=== PATIENT | female | born 1970 | race Caucasian/White ===

== ENCOUNTER → 2017-10-05 13:57 | Outpatient (CLI) | payer OTHER, SELFPAY ==
--- NOTE | 2017-10-05 13:59 | DI.US.S_ITS ---
ULTRASOUND OF RIGHT BREAST: 10/05/2017 CLINICAL: Patient returns today to evaluate a density in the right breast. Comparison is made to exams dated: 10/05/2017 mammogram and 09/16/2017 mammogram - [facility]. Color flow and real-time ultrasound of the right breast were performed on the areas of interest. Bernal scale images of the real-time examination were reviewed. There is a 1.4 cm x 0.6 cm x 1.3 cm lobulated mass in the right breast at 2 o'clock anterior depth. This lobulated mass is hypoechoic with posterior acoustic enhancement. This correlates with mammography findings. IMPRESSION: PROBABLY BENIGN - FOLLOW-UP RECOMMENDED The 1.4 cm x 0.6 cm x 1.3 cm lobulated mass in the right breast likely represents a fibroadenoma and is probably benign. A follow-up mammogram and an ultrasound in 6 months is recommended to demonstrate stability. This exam was interpreted at Station ID: [id number]. Electronically Signed By: Leonora hanley/:10/05/2017 17:11:12 letter sent: Followup Recommended Ultrasound BI-RADS: 3 Probably benign
--- NOTE | 2017-10-05 13:59 | DI.MG.S_ITS ---
UNILATERAL RIGHT DIGITAL DIAGNOSTIC MAMMOGRAM 3D/2D WITH ADDITIONAL VIEWS: 10/05/2017 CLINICAL: Additional evaluation requested from prior study. Comparison is made [facility] The tissue of the right breast is heterogeneously dense. This may lower the sensitivity of mammography. There is a mass in the right breast central to the nipple anterior depth. This is seen in additional views. No other significant masses or calcifications are seen in the breast. IMPRESSION: INCOMPLETE: NEEDS ADDITIONAL IMAGING EVALUATION The mass in the right breast is indeterminate. An ultrasound is recommended. This exam was interpreted at Station ID: [id number]. NOTE: For mammograms, a report in lay terms will be sent to the patient. Approximately 15% of breast malignancies will not be visualized mammographically. In the management of a palpable breast mass, a negative mammogram must not discourage biopsy of a clinically suspicious lesion. Electronically Signed By: Leonora hanley/michelle:10/05/2017 14:19:56 letter sent: Additional Imaging Needed ACR BI-RADS Category 0: Incomplete 3340F
== END ==
PROVIDERS: Family Provider Physician Assistant; PCP Physician Assistant; Visit Provider Physician Assistant
DX: R92.8 Other abnormal and inconclusive findings on diagnostic imaging of breast (principal)
CPT/HCPCS: 76642; 77065; G0279

== ENCOUNTER → 2018-03-28 09:31 | Outpatient (CLI) | payer OTHER, SELFPAY ==
--- NOTE | 2018-03-28 09:33 | DI.US.S_ITS ---
LIMITED ULTRASOUND OF RIGHT BREAST: 03/28/2018 CLINICAL: 6 month follow-up probable fibroadenoma. Comparison is made to exams dated: 10/05/2017 ultrasound, 10/05/2017 mammogram, 09/16/2017 mammogram, and 03/28/2018 mammogram - [facility]. Real-time and Doppler ultrasound of the right breast 11-1 o'clock region were performed. Bernal scale images of the real-time examination were reviewed. There is a 1.5 cm x 0.6 cm x 1.3 cm (previously 1.4 cm x 0.6 cm x 1.3 cm on 10/05/2017) lobulated mass in the right breast at 12:30 position 4 cm from the nipple. This lobulated mass is hypoechoic with posterior acoustic enhancement. There is mild peripheral vascularity on Doppler ultrasound. This correlates with mammography findings. IMPRESSION: PROBABLY BENIGN Stable 1.5 cm mass in the right breast at 12:30 position 4 cm from the nipple likely represents a fibroadenoma and is probably benign. A follow-up diagnostic mammogram and ultrasound in 6 months is recommended to demonstrate stability. Patient will also be due for bilateral screening mammography at that time. Patient is advised to return sooner should she feel anything in her breasts grow or change. This exam was interpreted at Station ID: [id number]. Electronically Signed By: Ramos Wiggins M.D. ecl/:03/28/2018 11:00:31 letter sent: Followup Recommended Ultrasound BI-RADS: 3 Probably benign
--- NOTE | 2018-03-28 09:33 | DI.MG.S_ITS ---
UNILATERAL RIGHT DIGITAL DIAGNOSTIC MAMMOGRAM 3D/2D: 03/28/2018 CLINICAL: Patient returns for a 6 month follow up of the right breast. Comparison is made to exams dated: 10/05/2017 mammogram and 09/16/2017 mammogram - [facility]. The tissue of right breast is heterogeneously dense. This may lower the sensitivity of mammography. There is a stable mass in the right breast central to the nipple middle depth. No other significant masses or calcifications are seen in the breast. IMPRESSION: INCOMPLETE: NEEDS ADDITIONAL IMAGING EVALUATION The mass in the right breast. is stable. A targeted ultrasound of the right breast is recommended and will be performed immediately following this exam. This exam was interpreted at Station ID: [id number]. NOTE: For mammograms, a report in lay terms will be sent to the patient. Approximately 15% of breast malignancies will not be visualized mammographically. In the management of a palpable breast mass, a negative mammogram must not discourage biopsy of a clinically suspicious lesion. Electronically Signed By: Leonora Good M.D. lk/:03/28/2018 10:35:34 letter sent: Additional Imaging Needed ACR BI-RADS Category 0: Incomplete 3340F
== END ==
PROVIDERS: PCP Physician Assistant; Visit Provider Physician Assistant
DX: R92.8 Other abnormal and inconclusive findings on diagnostic imaging of breast (principal); N63.12 Unspecified lump in the right breast, upper inner quadrant
CPT/HCPCS: 76642; 77065; G0279

== ENCOUNTER → 2018-07-12 09:00 | Outpatient (CLI) | payer OTHER, SELFPAY ==
--- NOTE | 2018-07-12 09:02 | DI.US.S_ITS ---
PROCEDURE: US ABDOMEN COMPLETE INDICATIONS: RIGHT LOWER QUADRANT PAIN TECHNIQUE: Real-time scanning was performed of the abdominal and retroperitoneal organs, with image documentation. COMPARISON: [facility], US, US PELVIC COMPLETE, 07/12/2018, 9:19. FINDINGS: Liver: Liver is normal in size. Within the anterior aspect of the right lobe of the liver, there is a solid heterogeneous, yet largely hyperechoic mass that measures 3.3 x 3.4 x 4.3 cm. Internal vascularity can be seen. There can also be seen 3 simple cysts left lobe liver, with the largest measuring up to 2.8 cm. Gallbladder: No findings of gallstones or sludge are seen. The gallbladder wall is not thickened, measuring 3 mm or less. No specific pericholecystic fluid is seen. The sonographic Navarro sign is negative. Biliary ducts: Intrahepatic bile ducts are non-dilated. No extrahepatic biliary ductal dilatation is seen. The common hepatic duct measures 4-5 mm. Normal is 6-7 mm or less in diameter, or 10 mm or less post-cholecystectomy. Pancreas: Visualized portions of the pancreas are sonographically normal. Spleen: Spleen is normal in size and homogeneous in echotexture. Kidneys: Kidneys are normal in size and echotexture. Right kidney measures 10.1 cm long; left kidney measures 10.1 cm long. No hydronephrosis or nephrolithiasis. No solid masses. The renal cortex measures within normal limits for thickness. Aorta: Visualized aorta is normal in caliber at less than 3 cm. Iliacs: Proximal common iliac arteries are normal in caliber at less than 2.5 cm. IVC: Intrahepatic inferior vena cava is patent. Miscellaneous: No free abdominal fluid. IMPRESSION: There is a heterogeneous, yet largely hyperechoic mass that measures up to 4.3 cm involving the anterior lobe of the liver. In a patient of this age, and is felt most likely to be related to a benign lesion, potentially a hemangioma. As clinically appropriate, please consider a dedicated liver protocol MRI (with and without contrast) for further evaluation (assuming that there is no contraindication). No imaging explanation is found for this patient's presenting history of right lower quadrant pain. Simple appearing liver cysts are also incidentally seen. Dictated by: Oliver Ríos M.D. on 07/12/2018 at 11:54 Approved by: Oliver Ríos M.D. on 07/12/2018 at 12:00
--- NOTE | 2018-07-12 09:02 | DI.US.S_ITS ---
PROCEDURE: US PELVIC COMPLETE INDICATIONS: RIGHT LOWER QUADRANT PAIN TECHNIQUE: Real-time scanning was performed of the pelvic organs, with image documentation. Additional endovaginal scanning was necessary due to incomplete visualization of the adnexal and endometrial structures by transabdominal scanning. COMPARISON: [facility], , US ABDOMEN COMPLETE, 07/12/2018, 9:36. FINDINGS: Transabdominal scanning: No pathologic free abdominal or pelvic fluid. On the accompanying abdominal ultrasound, the kidneys demonstrate a normal appearance. No appendix (either normal or abnormal) is identified on this study. Endovaginal scanning: Uterus: Uterus is normal in size at 10.1 x 5.5 x 7 cm. The endometrium measures 16 mm in combined thickness. Ovaries: The right ovary measures 3.6 x 3 x 3.6 cm. The left ovary measures 1.9 x 1.9 x 2.1 cm. The ovaries have a normal sonographic appearance, with simple appearing cysts, which are considered to be within physiologic limits. No adnexal masses are seen. IMPRESSION: No appendix can be seen, either normal or abnormal. No imaging explanation is found for this patient's presenting history of right lower quadrant pain. Dictated by: Oliver Ríos M.D. on 07/12/2018 at 11:48 Approved by: Oliver Ríos M.D. on 07/12/2018 at 11:50
== END ==
PROVIDERS: PCP Physician Assistant; Visit Provider Physician Assistant
DX: R10.31 Right lower quadrant pain (principal); R16.0 Hepatomegaly, not elsewhere classified; K76.89 Other specified diseases of liver; N83.292 Other ovarian cyst, left side; N83.291 Other ovarian cyst, right side
CPT/HCPCS: 76700; 76830; 76856

== ENCOUNTER → 2018-08-01 13:04 | Outpatient (CLI) | payer OTHER, SELFPAY ==
--- NOTE | 2018-08-01 13:06 | DI.MRI.S_ITS ---
PROCEDURE: MR ABDOMEN WO/W CON INDICATIONS: check liver-possible hemangioma R lobe seen on US TECHNIQUE: Coronal HASTE, axial 2D FLASH in- and [id number]; axial breath-hold T2 FSE. Dynamic axial VIBE during the administration of contrast; post-contrast coronal VIBE or 2D FLASH with fat saturation from the hepatic dome to the iliac crests. Optional diffusion weighted imaging and ADC may be performed. COMPARISON: None. FINDINGS: Image quality: Excellent. Lung bases: No basal pleural effusions. Heart size is normal. Solid organs: Liver is normal in size and enhancement. There are multiple widely scattered, thin-walled T2 hyperintensities within both lobes of the liver. The largest lesion is in the right hepatic lobe laterally, measures approximately 4.5 x 3.4 cm, and post contrast, demonstrates classic peripheral arterial discontinuous enhancement which gradually fills in on delayed phases. Given its size and timing of imaging, complete wash-in is not seen. The largest lesion in the left hepatic lobe is cranial within segment II, septated, and measures 2.3 cm. There is no arterial or delayed phase enhancement and finding is consistent with a septated cyst. Other simple cysts are seen scattered throughout the liver. There is no overall signal drop on out of phase imaging to suggest fat infiltration. The gallbladder is decompressed. Biliary system is nondilated. Pancreas is normal in morphology. Spleen is normal in size and enhancement. No adrenal nodules. Both kidneys demonstrate normal size and enhancement, without hydronephrosis. Tiny cortical cysts are seen in the left kidney. Nodes and vessels: No retroperitoneal or mesenteric adenopathy by size criteria. Aorta and inferior vena cava are normal in size. Bowel and peritoneum: Unenhanced bowel loops are normal in caliber. No free fluid. Bones and soft tissues: A most mild periumbilical rectus diastases through which nonobstructed small bowel loops protrude. Bone marrow is normal in overall signal. IMPRESSION: 1. 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 This is consistent with the ultrasound appearance and no further followup is needed. 2. Other scattered simple and finely septated cysts within the liver and left kidney are present. 3. Nonobstructing, small bowel containing rectus diastases. Dictated by: Vonnie Williamson M.D. on 08/01/2018 at 20:15 Approved by: Vonnie Williamson M.D. on 08/01/2018 at 20:28
== END ==
PROVIDERS: PCP Physician Assistant; Visit Provider Physician Assistant
DX: R10.31 Right lower quadrant pain (principal); R93.2 Abnormal findings on diagnostic imaging of liver and biliary tract; M62.08 Separation of muscle (nontraumatic), other site; N28.1 Cyst of kidney, acquired; K76.89 Other specified diseases of liver
CPT/HCPCS: 74183; A9579

== ENCOUNTER → 2018-10-03 09:39 | Outpatient (CLI) | payer OTHER, SELFPAY ==
--- NOTE | 2018-10-03 | DI.MG.S_ITS ---
BILATERAL DIGITAL DIAGNOSTIC MAMMOGRAM 3D/2D: 10/03/2018 CLINICAL: Patient returns for 6 month follow up of right breast, due for bilateral exam. Comparison is made to exams dated: 03/28/2018 mammogram, 10/05/2017 mammogram, and 09/16/2017 mammogram - [facility]. The tissue of both breasts is heterogeneously dense. This may lower the sensitivity of mammography. There is an oval equal density mass with an obscured and circumscribed margin in the right breast at 12 o'clock middle depth. This is not significantly changed. No other significant masses, calcifications, or other findings are seen in either breast. IMPRESSION: INCOMPLETE: NEEDS ADDITIONAL IMAGING EVALUATION The oval equal density mass in the right breast is indeterminate. An ultrasound is recommended. This exam was interpreted at Station ID: [id number]. NOTE: For mammograms, a report in lay terms will be sent to the patient. Approximately 15% of breast malignancies will not be visualized mammographically. In the management of a palpable breast mass, a negative mammogram must not discourage biopsy of a clinically suspicious lesion. Electronically Signed By: Aashish hitchcock/michelle:10/03/2018 10:35:14 ACR BI-RADS Category 0: Incomplete 3340F
--- NOTE | 2018-10-03 09:41 | DI.US.S_ITS ---
LIMITED ULTRASOUND OF RIGHT BREAST: 10/03/2018 CLINICAL: F/u rt breast. Comparison is made to exams dated: 10/03/2018 mammogram, 03/28/2018 ultrasound, 03/28/2018 mammogram, 10/05/2017 ultrasound, and 10/05/2017 mammogram - [facility]. Color flow and real-time ultrasound of the right breast 12 o'clock region were performed on the areas of interest. There is 1.6 cm x 0.7 cm x 1.4 cm oval mass with a circumscribed margin in the right breast at 12 o'clock middle depth. This oval mass is hypoechoic with a well-defined boundary. This correlates with mammography findings and appears similar to minimally increased in size compared to the prior studies given differences in technique. Color flow imaging demonstrates that there is no vascularity present. IMPRESSION: PROBABLY BENIGN The 1.6 cm x 0.7 cm x 1.4 cm oval mass in the right breast is probably benign. A follow-up ultrasound in 6 months is recommended. A follow-up ultrasound in 6 months is recommended to demonstrate stability. This exam was interpreted at Station ID: [id number]. Electronically Signed By: Aashish hitchcock/:10/03/2018 12:00:43 letter sent: Followup Recommended Ultrasound BI-RADS: 3 Probably benign
== END ==
PROVIDERS: PCP Physician Assistant; Visit Provider Physician Assistant
DX: R92.8 Other abnormal and inconclusive findings on diagnostic imaging of breast (principal); N63.10 Unspecified lump in the right breast, unspecified quadrant
CPT/HCPCS: 76642; 77066; G0279

== ENCOUNTER → 2019-03-29 10:17 | Outpatient (CLI) | payer OTHER, SELFPAY ==
--- NOTE | 2019-03-29 10:19 | DI.US.S_ITS ---
ULTRASOUND OF RIGHT BREAST: 03/29/2019 CLINICAL: 6 month follow-up right breast mass. Comparison is made to exams dated: 10/03/2018 ultrasound, 10/03/2018 mammogram, 03/28/2018 ultrasound, 03/28/2018 mammogram, 10/05/2017 ultrasound, and 10/05/2017 mammogram - [facility]. Color flow and real-time ultrasound of the right breast were performed. Bernal scale images of the real-time examination were reviewed. There is a 1.5 cm x 0.6 cm x 1.2 cm oval mass with a circumscribed margin in the right breast at 12 o'clock middle depth 4 cm from the nipple. This oval mass is hypoechoic with a well-defined boundary. This abnormality is not significantly changed and correlates with mammography findings. Color flow imaging demonstrates that there is no vascularity present. IMPRESSION: PROBABLY BENIGN The 1.5 cm x 0.6 cm x 1.2 cm oval mass in the right breast has remained stable since September 2017 and is probably benign. A follow-up bilateral mammogram and a right breast ultrasound in 6 months is recommended to demonstrate two years of stability. This exam was interpreted at Station ID: [id number]. Electronically Signed By: Gary Carson M.D. aty/:03/29/2019 11:15:14 letter sent: Followup Recommended Ultrasound BI-RADS: 3 Probably benign
== END ==
PROVIDERS: Family Provider Physician Assistant; PCP Physician Assistant; Visit Provider Registered Nurse
DX: R92.8 Other abnormal and inconclusive findings on diagnostic imaging of breast (principal); N63.15 Unspecified lump in the right breast, overlapping quadrants
CPT/HCPCS: 76642

== ENCOUNTER → 2019-12-26 12:36 | Outpatient (CLI) | payer OTHER, SELFPAY ==
--- NOTE | 2019-12-26 12:38 | DI.MG.S_ITS ---
BILATERAL DIGITAL DIAGNOSTIC MAMMOGRAM 3D/2D: 12/26/2019 CLINICAL: Short term follow up, due bilateral. Comparison is made to exams dated: 10/03/2018 mammogram, 03/28/2018 mammogram, 10/05/2017 mammogram, and 09/16/2017 mammogram - [facility]. The tissue of both breasts is heterogeneously dense. This may lower the sensitivity of mammography. Unchanged oval isodense mass with an partially obscured margin in the right breast at 12 o'clock middle depth. No other significant masses, calcifications, or other findings are seen in either breast. IMPRESSION: INCOMPLETE: NEEDS ADDITIONAL IMAGING EVALUATION The oval equal density mass in the right breast is unchanged by mammogram. An ultrasound is recommended to more fully evaluate, scheduled to immediately follow this exam. This exam was interpreted at Station ID: [id number]. NOTE: For mammograms, a report in lay terms will be sent to the patient. Approximately 15% of breast malignancies will not be visualized mammographically. In the management of a palpable breast mass, a negative mammogram must not discourage biopsy of a clinically suspicious lesion. Electronically Signed By: Dixon Renteria M.D. jr/:12/26/2019 13:03:36 ACR BI-RADS Category 0: Incomplete 3340F
--- NOTE | 2019-12-26 12:38 | DI.US.S_ITS ---
LIMITED ULTRASOUND OF RIGHT BREAST: 12/26/2019 CLINICAL: Patient returns for a 6 month follow up of the right breast. Comparison is made to exams dated: 12/26/2019 mammogram, 03/29/2019 ultrasound, 10/03/2018 ultrasound, 10/03/2018 mammogram, 03/28/2018 ultrasound, and 03/28/2018 mammogram - [facility]. Color flow, real-time, and Doppler ultrasound of the right breast were performed. Bernal scale images of the real-time examination were reviewed. The right breast mass of interest is unchanged when compared with 2018 examinations, statistically benign. IMPRESSION: BENIGN There is no sonographic evidence of malignancy. Return to annual mammogram screening schedule is recommended. This exam was interpreted at Station ID: [id number]. Electronically Signed By: Dixon Renteria M.D. jr/:12/26/2019 13:41:52 letter sent: Normal Exam Ultrasound BI-RADS: 2 Benign
== END ==
PROVIDERS: Family Provider Physician Assistant; PCP Nurse Practitioner; Referring Provider Nurse Practitioner; Visit Provider Nurse Practitioner
DX: R92.8 Other abnormal and inconclusive findings on diagnostic imaging of breast (principal); N63.15 Unspecified lump in the right breast, overlapping quadrants
CPT/HCPCS: 76642; 77066; G0279

== ENCOUNTER → 2020-03-21 09:48 | Outpatient (CLI) | payer OTHER, SELFPAY ==
[2020-03-21 10:34] LABS: Hematocrit 40.5 % (36-46); Hemoglobin 13.8 g/dL (12.0-16.0); Mean Corpuscular Hemoglobin 31.6 PG (26-34); Platelet Count 220 X10^3/uL (150-400); Red Blood Cell Count 4.35 X10^6/uL (4.0-5.2); Red Cell Distribution Width 12.4 % (11.6-14.8); White Blood Cell Count 4.3 X10^3/uL (4.5-11.0)
[2020-03-21 10:46] LABS: Alanine Aminotransferase 15 IU/L (<35); Albumin 4.3 g/dL (3.5-5.0); Albumin Globulin Ratio 1.3 (1.0-2.8); Alkaline Phosphatase 65 U/L (38-126); Aspartate Aminotransferase 27 IU/L (14-36); BUN Creatinine Ratio 22.1 (6-22); Bilirubin Total 0.6 mg/dL (0.2-1.3); Blood Urea Nitrogen 17 mg/dL (7-17); Calcium 9.1 mg/dL (8.4-10.2); Carbon Dioxide 31 mmol/L (22-32); Chloride 105 mmol/L (98-107); Cholesterol 273 mg/dL (140-199); Estimated Glomerular Filt Rate > 60.0 mL/min (>60); Globulin 3.3 g/dL (1.7-4.1); Glucose 88 mg/dL (70-100); HDL Cholesterol 43 mg/dL (40-60); HEMOLYSIS < 15 (0-50); LDL Cholesterol Calculated 213 mg/dL (<100); Potassium 4.6 mmol/L (3.4-5.1); Sodium 138 mmol/L (137-145); Total Protein 7.6 g/dL (6.3-8.2); Triglycerides 86 mg/dL (35-150)
[2020-03-21 12:30] LABS: TSH w/ Reflex to FT4 2.06 uIU/mL (0.47-4.68)
[2020-03-25 15:41] LABS: Lamotrigine Lamictal 5.2 ug/mL (2.0-20.0)
== END ==
PROVIDERS: Family Provider Physician Assistant; PCP Nurse Practitioner Family; Referring Provider Nurse Practitioner Family; Visit Provider Nurse Practitioner Family
DX: Z00.00 Encounter for general adult medical examination without abnormal findings (principal); L85.3 Xerosis cutis; E78.5 Hyperlipidemia, unspecified; Z79.899 Other long term (current) drug therapy
CPT/HCPCS: 36415; 80053; 80061; 80175; 84443; 85027

== ENCOUNTER → 2020-06-26 15:06 | Outpatient (CLI) | payer OTHER, SELFPAY ==
--- NOTE | 2020-06-26 | DI.RAD.S_ITS ---
PROCEDURE: XR FOOT LT MIN 3V INDICATIONS: LEFT foot injury TECHNIQUE: 3 views of the foot were acquired. COMPARISON: None. FINDINGS: Bones: No fractures or dislocations. No suspicious bony lesions. Soft tissues: No tibiotalar joint effusion. Achilles tendon appears normal. IMPRESSION: No trauma found. Dictated by: Blaine Vidal M.D. on 06/26/2020 at 16:08 Approved by: Blaine Vidal M.D. on 06/26/2020 at 16:08
== END ==
PROVIDERS: Family Provider Physician Assistant; PCP Nurse Practitioner Family; Referring Provider Nurse Practitioner Family; Visit Provider Nurse Practitioner Family
DX: S99.922A Unspecified injury of left foot, initial encounter (principal); X58.XXXA Exposure to other specified factors, initial encounter
CPT/HCPCS: 73630

== ENCOUNTER → 2020-08-15 | Outpatient (CLI) | payer OTHER, SELFPAY ==
[2020-08-15] MEDS: COVID-19 VACC #1, MRNA(MOD) 100 MCG/0.5 ML VIAL IM (17:05)
== END ==
PROVIDERS: Family Provider Physician Assistant; PCP Nurse Practitioner Family; Visit Provider Internal Medicine
DX: Z23 Encounter for immunization (principal)
CPT/HCPCS: 0011A; 91301

== ENCOUNTER → 2020-09-12 14:12 | Outpatient (CLI) | payer OTHER, SELFPAY ==
[2020-09-12] MEDS: COVID-19 VACC #2, MRNA(MOD) 100 MCG/0.5 ML VIAL IM (14:13)
== END ==
PROVIDERS: Family Provider Physician Assistant; PCP Nurse Practitioner Family; Visit Provider Internal Medicine
DX: Z23 Encounter for immunization (principal)
CPT/HCPCS: 0012A; 91301

== ENCOUNTER → 2021-01-22 15:13 | Outpatient (CLI) | payer OTHER, SELFPAY ==
--- NOTE | 2021-01-22 15:15 | DI.MG.S_ITS ---
BILATERAL DIGITAL SCREENING MAMMOGRAM 3D/2D WITH CAD: 01/22/2021 CLINICAL: Routine screening. Comparison is made to exams dated: 12/26/2019 ultrasound, 12/26/2019 mammogram, 10/03/2018 mammogram, and 03/28/2018 mammogram - [facility]. The tissue of both breasts is heterogeneously dense. This may lower the sensitivity of mammography. Current study was also evaluated with a Computer Aided Detection (CAD) system. There is a stable benign cyst in the right breast. No significant masses, calcifications, or other findings are seen in either breast. There has been no significant interval change. IMPRESSION: BENIGN There is no mammographic evidence of malignancy. A 1 year screening mammogram is recommended. This exam was interpreted at Station ID: [id number]. NOTE: For mammograms, a report in lay terms will be sent to the patient. Approximately 15% of breast malignancies will not be visualized mammographically. In the management of a palpable breast mass, a negative mammogram must not discourage biopsy of a clinically suspicious lesion. Electronically Signed By: Bautista Chun acr/susierad:01/22/2021 16:35:30 letter sent: Normal Exam ACR BI-RADS Category 2: Benign Finding(s) 3342F
== END ==
PROVIDERS: Family Provider Physician Assistant; PCP Nurse Practitioner Family; Referring Provider Nurse Practitioner Family; Visit Provider Nurse Practitioner Family
DX: Z12.31 Encounter for screening mammogram for malignant neoplasm of breast (principal)
CPT/HCPCS: 77063; 77067

== ENCOUNTER → 2021-03-03 09:37 | Outpatient (CLI) | payer OTHER, SELFPAY ==
[2021-03-03 10:59] LABS: Add Manual Diff / Slide Review NO; Basophils Absolute Auto 0 /uL (0-100); Basophils Percent Auto 1.1 % (0-2); Eosinophils Absolute Auto 200 /uL (0-450); Eosinophils Percent Auto 4.9 % (2-4); Hematocrit 41.7 % (36-46); Hemoglobin 13.9 g/dL (12.0-16.0); Lymphocytes Absolute Auto 1500 /uL (1100-4500); Lymphocytes Percent Auto 31.5 % (25-40); Mean Corpuscular HGB Conc 33.3 % (30-36); Monocytes Absolute Auto 400 /uL (0-900); Monocytes Percent Auto 8.7 % (3-14); Neutrophils Absolute Auto 2500 /uL (1500-7000); Neutrophils Percent Auto 53.8 % (50-75); Platelet Count 213 X10^3/uL (150-400); Red Blood Cell Count 4.48 X10^6/uL (4.0-5.2); Red Cell Distribution Width 12.6 % (11.6-14.8); White Blood Cell Count 4.7 X10^3/uL (4.5-11.0)
[2021-03-03 11:20] LABS: Alanine Aminotransferase 17 IU/L (<35); Albumin 4.1 g/dL (3.5-5.0); Albumin Globulin Ratio 1.4 (1.0-2.8); Alkaline Phosphatase 55 U/L (38-126); Aspartate Aminotransferase 24 IU/L (14-36); BUN Creatinine Ratio 27.7 (6-22); Bilirubin Total 0.4 mg/dL (0.2-1.3); Blood Urea Nitrogen 18 mg/dL (7-17); Calcium 8.9 mg/dL (8.4-10.2); Carbon Dioxide 29 mmol/L (22-32); Chloride 106 mmol/L (98-107); Cholesterol 255 mg/dL (140-199); Estimated Glomerular Filt Rate > 60.0 mL/min (>60); Glucose 89 mg/dL (70-100); HDL Cholesterol 50 mg/dL (40-60); HEMOLYSIS < 15 (0-50); LDL Cholesterol Calculated 190 mg/dL (<100); Potassium 4.6 mmol/L (3.4-5.1); Sodium 139 mmol/L (137-145); Total Protein 7.1 g/dL (6.3-8.2); Triglycerides 75 mg/dL (35-150)
[2021-03-03 15:57] LABS: TSH w/ Reflex to FT4 2.41 uIU/mL (0.47-4.68)
== END ==
PROVIDERS: Family Provider Physician Assistant; PCP Internal Medicine; Referring Provider Internal Medicine; Visit Provider Internal Medicine
DX: Z00.00 Encounter for general adult medical examination without abnormal findings (principal); R53.83 Other fatigue
CPT/HCPCS: 36415; 80053; 80061; 83036; 84443; 85025

== ENCOUNTER → 2021-07-07 12:05 | Outpatient (CLI) | payer OTHER, SELFPAY ==
[2021-07-07 14:02] LABS: Appearance Urine UA CLEAR; Bilirubin Urine UA NEGATIVE (NEGATIVE); Color Urine UA YELLOW; Glucose Urine UA NEGATIVE (Negative); Ketones Urine UA NEGATIVE (NEGATIVE); Leukocyte Esterase Urine UA NEGATIVE (NEGATIVE); Nitrite Urine UA NEGATIVE (Negative); Occult Blood Urine UA 1+ (Negative); Protein Urine UA NEGATIVE (Negative); Urobilinogen Urine UA 0.2 E.U./dL (0.2)
[2021-07-07 14:52] LABS: RBC Urine 1-5/HPF (0-5/HPF); WBC Urine 0-1/HPF (0-5/HPF)
[2021-07-07 14:53] LABS: Bacteria Urine Few (2-10); Culture Indicated Urine Cult Not Indicated; Squamous Epithelial Cell Urine 0-1 /HPF (0-5/HPF)
== END ==
PROVIDERS: Family Provider Internal Medicine; PCP Internal Medicine; Referring Provider Internal Medicine; Visit Provider Internal Medicine
DX: N39.46 Mixed incontinence (principal)
CPT/HCPCS: 81001

== ENCOUNTER → 2021-07-21 11:42 | Outpatient (CLI) | payer OTHER, SELFPAY ==
--- NOTE | 2021-07-21 11:45 | DI.CT.S_ITS ---
PROCEDURE: CT SINUS SCREEN WO CON INDICATIONS: Chronic pansinusitis TECHNIQUE: Noncontrast 3.0 mm axial images acquired from the frontal sinuses to the mid-sella, with coronal and sagittal reformats. For radiation dose reduction, the following was used: automated exposure control, adjustment of mA and/or kV according to patient size. COMPARISON: None. FINDINGS: Image quality: Excellent. Maxillary Sinuses: Near complete opacification left maxillary sinus with obstruction of the ostiomeatal unit noted. The. There is a right maxillary sinus mucosal thickening measuring up to 6 mm. Bilateral uncinectomy and ethmoidectomy noted with preservation of the middle turbinates Ethmoid Air Cells: Middle and posterior ethmoidectomy with mucosal thickening noted in the anterior ethmoid air cells. Sphenoid Sinuses: No bony remodeling or destruction. Sinuses are clear. Frontal Sinuses: No bony remodeling or destruction. Sinuses are clear. Ostiomeatal Complexes: Ostiomeatal complexes are patent. No Kasia cells. Miscellaneous: Visualized intra-orbital contents are normal. No jhon bullosa or paradoxical turbinate curvature. No nasal septal deviation. Bilateral canal wall up mastoidectomy is noted. Ossicular chains appear preserved. IMPRESSION: 1. Bilateral maxillary sinus mucosal thickening, left greater than right. 2. Bilateral uncinectomy and ethmoidectomy. 3. Anterior ethmoid mucosal thickening Approved by: Louie Weaver M.D. on 07/21/2021 at 13:05
== END ==
PROVIDERS: Family Provider Internal Medicine; PCP Internal Medicine; Referring Provider Otolaryngology; Visit Provider Otolaryngology
DX: J32.4 Chronic pansinusitis (principal)
CPT/HCPCS: 70486

== ENCOUNTER → 2021-08-25 12:10 | Outpatient (CLI) | payer OTHER, SELFPAY ==
[2021-08-25 14:28] LABS: Add Manual Diff / Slide Review NO; Basophils Absolute Auto 0 /uL (0-100); Basophils Percent Auto 0.8 % (0-2); Eosinophils Absolute Auto 200 /uL (0-450); Eosinophils Percent Auto 2.4 % (2-4); Hematocrit 38.9 % (36-46); Hemoglobin 13.2 g/dL (12.0-16.0); Lymphocytes Absolute Auto 1200 /uL (1100-4500); Lymphocytes Percent Auto 18.9 % (25-40); Mean Corpuscular HGB Conc 33.8 % (30-36); Mean Corpuscular Hemoglobin 30.8 PG (26-34); Mean Corpuscular Volume 91.1 fL (80-100); Monocytes Absolute Auto 800 /uL (0-900); Neutrophils Absolute Auto 4200 /uL (1500-7000); Neutrophils Percent Auto 65.9 % (50-75); Platelet Count 220 X10^3/uL (150-400); Red Blood Cell Count 4.27 X10^6/uL (4.0-5.2); Red Cell Distribution Width 13.5 % (11.6-14.8); White Blood Cell Count 6.4 X10^3/uL (4.5-11.0)
[2021-08-25 14:42] LABS: Alanine Aminotransferase 30 IU/L (<35); Albumin 3.6 g/dL (3.5-5.0); Albumin Globulin Ratio 1.2 (1.0-2.8); Alkaline Phosphatase 71 U/L (38-126); Aspartate Aminotransferase 25 IU/L (14-36); BUN Creatinine Ratio 23.2 (6-22); Bilirubin Total 0.4 mg/dL (0.2-1.3); Blood Urea Nitrogen 16 mg/dL (7-17); Calcium 8.3 mg/dL (8.4-10.2); Carbon Dioxide 26 mmol/L (22-32); Chloride 105 mmol/L (98-107); Estimated Glomerular Filt Rate > 60.0 mL/min (>60); Glucose 96 mg/dL (70-100); HEMOLYSIS < 15 (0-50); Potassium 3.8 mmol/L (3.4-5.1); Sodium 138 mmol/L (137-145); Total Protein 6.6 g/dL (6.3-8.2)
== END ==
PROVIDERS: Family Provider Internal Medicine; PCP Internal Medicine; Referring Provider Physician Assistant; Visit Provider Physician Assistant
DX: R19.7 Diarrhea, unspecified (principal)
CPT/HCPCS: 36415; 80053; 85025

== ENCOUNTER → 2021-08-27 07:12 | Outpatient (CLI) | payer OTHER, SELFPAY ==
[2021-08-27 10:17] LABS: Campylobacter Not Detected (Not Detect); Clostridium difficile toxin AB Detected (Not Detect)
[2021-08-27 10:18] LABS: Adenovirus F 40/41 Not Detected (Not Detect); Astrovirus Not Detected (Not Detect); Cryptosporidium Not Detected (Not Detect); Cyclospora cayetanensis Not Detected (Not Detect); Entamoeba histolytica Not Detected (Not Detect); Enteroaggregative E.coli Not Detected (Not Detect); Enteropathogenic E.coli Not Detected (Not Detect); Enterotoxigenic E.coli It/st Not Detected (Not Detect); Giardia lamblia Not Detected (Not Detect); Norovirus GI/GII Not Detected (Not Detect); Plesiomonsa shigelloides Not Detected (Not Detect); Rotavirus A Not Detected (Not Detect); Salmonella Not Detected (Not Detect); Sapovirus Not Detected (Not Detect); Shiga-like toxin-prod E.coli Not Detected (Not Detect); Shigella/Enteroinvasive E.coli Not Detected (Not Detect); Vibrio Not Detected (Not Detect); Vibrio cholerae Not Detected (Not Detect); Yersinia enterocolitica Not Detected (Not Detect)
[2021-08-28 15:48] LABS: C difficie Toxins A and B, EIA Negative (Negative)
== END ==
PROVIDERS: Family Provider Internal Medicine; PCP Internal Medicine; Referring Provider Physician Assistant; Visit Provider Physician Assistant
DX: R19.7 Diarrhea, unspecified (principal)
CPT/HCPCS: 87177; 87324; 87329; 87507

== ENCOUNTER → 2021-09-08 12:42 | Outpatient (CLI) | payer OTHER, SELFPAY ==
--- NOTE | 2021-09-08 12:44 | DI.CT.S_ITS ---
PROCEDURE: CT SINUS SCREEN WO CON INDICATIONS: Chronic pansinusitis TECHNIQUE: Noncontrast 3.0 mm axial images acquired from the frontal sinuses to the mid-sella, with coronal and sagittal reformats. For radiation dose reduction, the following was used: automated exposure control, adjustment of mA and/or kV according to patient size. COMPARISON: [facility], CT, CT SINUS SCREEN WO CON, 07/21/2021, 11:46. FINDINGS: Image quality: Excellent. Maxillary Sinuses: The medial mcneil of the maxillary sinuses have been. Ixhi-gc-akvulhwi inferior right and mild inferior left maxillary sinus mucosal thickening can be seen. Ethmoid Air Cells: Portions of the ethmoid air cell septations have been removed. Moderate mucosal thickening can be seen on the right. Sphenoid Sinuses: No bony remodeling or destruction. Sinuses are clear. Frontal Sinuses: No bony remodeling or destruction. Hqta-qn-ehkomlvt mucosal thickening can be seen on the right inferior medially. Ostiomeatal Complexes: Removed. Miscellaneous: Visualized intra-orbital contents are normal. No jhon bullosa or paradoxical turbinate curvature. No nasal septal deviation. IMPRESSION: Paranasal sinus disease is seen, which is clearly improved compared to the prior CT. Interval postoperative changes, with new left-sided antrectomy. Dictated by: Oliver Ríos M.D. on 09/08/2021 at 12:03 Approved by: Oliver Ríos M.D. on 09/08/2021 at 12:05
== END ==
PROVIDERS: Family Provider Internal Medicine; PCP Internal Medicine; Referring Provider Otolaryngology; Visit Provider Otolaryngology
DX: J32.4 Chronic pansinusitis (principal)
CPT/HCPCS: 70486

== ENCOUNTER → 2022-01-27 12:46 | Outpatient (CLI) | payer OTHER, SELFPAY ==
--- NOTE | 2022-01-27 12:47 | DI.MG.S_ITS ---
BILATERAL DIGITAL SCREENING MAMMOGRAM 3D/2D WITH CAD: 01/27/2022 CLINICAL: Routine screening. Comparison is made to exams dated: 01/22/2021 mammogram, 12/26/2019 mammogram, 03/29/2019 ultrasound, 10/03/2018 mammogram, and 03/28/2018 mammogram - [facility]. Both breasts are heterogeneously dense, which may obscure small masses (category c / 51-75% glandular tissue). Current study was also evaluated with a Computer Aided Detection (CAD) system. There is a stable benign cyst in the right breast. No significant masses, calcifications, or other findings are seen in either breast. There has been no significant interval change. IMPRESSION: BENIGN There is no mammographic evidence of malignancy. A 1 year screening mammogram is recommended. Based on the Tyrer Cuzick model (a risk assessment model) the patient's lifetime risk is 14.2% and her 10 year risk is 3.2%. According to the ACR, ACS, and NCCN guidelines, an annual breast MRI exam along with mammogram is recommended if the patient's lifetime risk is 20% or greater. This exam was interpreted at Station ID: [id number]. NOTE: For mammograms, a report in lay terms will be sent to the patient. Approximately 15% of breast malignancies will not be visualized mammographically. In the management of a palpable breast mass, a negative mammogram must not discourage biopsy of a clinically suspicious lesion. Electronically Signed By: Giuliano chappell/michelle:01/27/2022 16:37:23 letter sent: Normal Exam ACR BI-RADS Category 2: Benign Finding(s) 3342F
== END ==
PROVIDERS: Family Provider Internal Medicine; PCP Student in an Organized Health Care Education/Training Program; Referring Provider Student in an Organized Health Care Education/Training Program; Visit Provider Student in an Organized Health Care Education/Training Program
DX: Z12.31 Encounter for screening mammogram for malignant neoplasm of breast (principal)
CPT/HCPCS: 77063; 77067

== ENCOUNTER → 2022-02-11 11:38 | Outpatient (CLI) | payer OTHER, SELFPAY ==
[2022-02-11 13:33] LABS: Add Manual Diff / Slide Review NO; Basophils Absolute Auto 0 /uL (0-100); Basophils Percent Auto 0.6 % (0-2); Eosinophils Absolute Auto 300 /uL (0-450); Eosinophils Percent Auto 3.5 % (2-4); Hematocrit 39.5 % (36-46); Hemoglobin 13.7 g/dL (12.0-16.0); Lymphocytes Absolute Auto 1800 /uL (1100-4500); Lymphocytes Percent Auto 23.7 % (25-40); Mean Corpuscular HGB Conc 34.7 % (30-36); Mean Corpuscular Hemoglobin 31.4 PG (26-34); Mean Corpuscular Volume 90.4 fL (80-100); Monocytes Absolute Auto 600 /uL (0-900); Monocytes Percent Auto 7.9 % (3-14); Neutrophils Absolute Auto 4800 /uL (1500-7000); Neutrophils Percent Auto 64.3 % (50-75); Platelet Count 201 X10^3/uL (150-400); Red Blood Cell Count 4.36 X10^6/uL (4.0-5.2); Red Cell Distribution Width 13.6 % (11.6-14.8); White Blood Cell Count 7.4 X10^3/uL (4.5-11.0)
[2022-02-11 13:39] LABS: Alanine Aminotransferase 15 IU/L (<35); Albumin Globulin Ratio 1.1 (1.0-2.8); Alkaline Phosphatase 69 U/L (38-126); Aspartate Aminotransferase 24 IU/L (14-36); BUN Creatinine Ratio 23.3 (6-22); Bilirubin Total 0.4 mg/dL (0.2-1.3); Blood Urea Nitrogen 17 mg/dL (7-17); Calcium 8.9 mg/dL (8.4-10.2); Carbon Dioxide 25 mmol/L (22-32); Chloride 104 mmol/L (98-107); Cholesterol 254 mg/dL (140-199); Estimated Glomerular Filt Rate > 60 mL/min (>60); Globulin 3.5 g/dL (1.7-4.1); Glucose 86 mg/dL (70-100); HDL Cholesterol 38 mg/dL (40-60); HEMOLYSIS < 15 (0-50); LDL Cholesterol Calculated 172 mg/dL (<100); Potassium 4.1 mmol/L (3.4-5.1); Sodium 139 mmol/L (137-145); Total Protein 7.5 g/dL (6.3-8.2); Triglycerides 222 mg/dL (35-150)
[2022-02-11 14:18] LABS: TSH w/ Reflex to FT4 1.96 uIU/mL (0.47-4.68)
== END ==
PROVIDERS: Family Provider Internal Medicine; PCP Student in an Organized Health Care Education/Training Program; Referring Provider Student in an Organized Health Care Education/Training Program; Visit Provider Student in an Organized Health Care Education/Training Program
DX: E78.49 Other hyperlipidemia (principal); F41.9 Anxiety disorder, unspecified; F32.A Depression, unspecified; R63.5 Abnormal weight gain
CPT/HCPCS: 36415; 80053; 80061; 84443; 85025

== ENCOUNTER 2022-10-21 12:46 | Emergency (ER) | payer OTHER, SELFPAY ==
[2022-10-21 12:54] VITALS: BP 165/82; PULSE 82; RESP 16; TEMP 37.2; O2SAT 99; BMI 25.0
[2022-10-21 13:30] LABS: Add Manual Diff / Slide Review NO; Basophils Absolute Auto 0 /uL (0-100); Basophils Percent Auto 0.7 % (0-2); Eosinophils Absolute Auto 100 /uL (0-450); Eosinophils Percent Auto 0.7 % (2-4); Hematocrit 42.2 % (36-46); Hemoglobin 14.6 g/dL (12.0-16.0); Lymphocytes Absolute Auto 1000 /uL (1100-4500); Lymphocytes Percent Auto 15.3 % (25-40); Mean Corpuscular HGB Conc 34.5 % (30-36); Mean Corpuscular Hemoglobin 31.3 PG (26-34); Mean Corpuscular Volume 90.7 fL (80-100); Monocytes Absolute Auto 500 /uL (0-900); Monocytes Percent Auto 6.9 % (3-14); Neutrophils Absolute Auto 5100 /uL (1500-7000); Neutrophils Percent Auto 76.4 % (50-75); Platelet Count 220 X10^3/uL (150-400); Red Blood Cell Count 4.65 X10^6/uL (4.0-5.2); Red Cell Distribution Width 12.2 % (11.6-14.8); White Blood Cell Count 6.7 X10^3/uL (4.5-11.0)
[2022-10-21 13:42] LABS: Alanine Aminotransferase 18 IU/L (<35); Albumin 4.6 g/dL (3.5-5.0); Alkaline Phosphatase 82 U/L (38-126); Aspartate Aminotransferase 23 IU/L (14-36); BUN Creatinine Ratio 19.7 (6-22); Blood Urea Nitrogen 14 mg/dL (7-17); Carbon Dioxide 25 mmol/L (22-32); Chloride 102 mmol/L (98-107); Estimated Glomerular Filt Rate > 60 mL/min (>60); Glucose 91 mg/dL (70-100); HEMOLYSIS < 15 (0-50); Potassium 3.7 mmol/L (3.4-5.1); Sodium 137 mmol/L (137-145); Total Protein 8.1 g/dL (6.3-8.2)
[2022-10-21 13:43] LABS: Acetaminophen < 10 ug/mL (10-30); Albumin Globulin Ratio 1.3 (1.0-2.8); Ethanol (ETOH) < 10 mg/dL; Globulin 3.5 g/dL (1.7-4.1); Salicylate < 1.0 mg/dL (<20)
--- NOTE | 2022-10-21 14:02 | CM.SWNOTE ---
CONTACT CENTER ANALYST Assessment CONTACT CENTER ANALYST - College Dean Assessment CONTACT CENTER ANALYST/College Dean Assessment Time Spent with Patient Start date 10/21/22 Visit Start Time 12:50 End date 10/21/22 Visit End Time 13:05 Total time Care Management spent on 20 minutes patient visit-in minutes Mental Health Screening Include Onset, Duration, Intensity Presenting Problem Patient presents to ED with spouse after calling PCP office. Initially patient requests spouse to endorse why patient is here. Patient presents with increased depression, low energy and the last 3 days patient has struggled getting out of bed and eating. Patient later states I feel like a failure as a person and as a mother. Patient also endorses difficulty finding melina. Patient endorses SI, endorses thoughts of plans but will not share. Patient denies current SI and denies intent to act on plans. Patient states I want to go to sleep and not wake up. Precipitating Event(s) It is reported that patient went off of Lexapro last year due to dizziness side effects. It is reported that patient utilized her PCP to titrate the dosage until patient was waned off of prescription. It is reported that patient has not been on any MH medication since. It is reported that there are life stressors at home, patient is the mother of three kids at home who have recently been diagnosed with MH dx and in need of MH providers and outpatient care plans. Patient endorses she has also been quite sad mourning the loss of her dog. Patient Strengths Patient has therapist and supportive spouse. Current Behavioral Health Provider(s) Patient endorses she sees Include Facility, Provider, Ph. # therapist Anatoliy Zapata, MS, VOLLEYBALL COMMENTATOR , CHT every 2 weeks (Ph. # [phone]) , patient states that she has been sharing her appts with one of her children due to their new dx. Psych. 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 Patient denies ETOH or substance use. Family Hx of Behavioral Abuse None reported Psychiatric Hospitalizations (date(s)/ No hx location) Psychosocial information & Support Patient is 51 y/o female who Systems resides with spouse and 3 children in [place]. Patient has spouse as support and has local family members. School/Work Patient is currently unemployed Legal Concerns Legal Matters - Outstanding Issues None reported Mental Status Orientation (Person/Place/Time) A/Ox4 Stated Mood something's wrong Affect (Congruent with Mood?) dysthymic, flat, tearful at times, congruent with mood. Thought Content - Specify/Describe None reported Obsessions, Delusions, Hallucinations Thought Processes (Yklvgsx-Ygdsvspp-Jwpv coherent Rnevxpxm-Hmikkjry-Pogxfdhhfv- Tpoghxqfivoqhh-Jdriqln-Ihgehmgoxgal- Thought Blocking) Speech (Rcjvtk-Dwbf-Xnewxcj-Rapid-Soft- soft/slow Loud-Pressured) Motor (Uqngbk-Rylcvcgib-Gghg-Other) normal Insight (Thpd-Doxi-Elli/Limited) fair Judgement (Pqbi-Mxnm-Vwmy/Limited) fair Impulse Control (Adequate-Impaired) adequate Memory (Ysyrfbsho-Yyvsaj-Jfowqm, intact, not formally assessed Impaired-Intact) Concentration (Intact-Impaired) intact Attention (Intact-Impaired) intact Behavior (Appropriate-Inappropriate) appropriate Additional Comment patient presents as calm, communicative and cooperative Risk Assessment Suicidal Ideation (Plan) Yes Homicidal Ideation (Plan) No Comment Patient denies current SI, patient denies intent to act on SI. Patient endorses hx of SI and states I want to go to sleep and not wake up. Patient endorses hx of thoughts of plans but does not want to share her thoughts. Patient denies hx of attempts. Intervention Intervention CONTACT CENTER ANALYST enters triage to meet with patient. Present in room is patient's spouse, patient requests spouse to explain what brings patient to ED. It is reported that patient has struggled with motivation to get out of bed, lack of sleep and eat in the last few days. Patient endorses she is having difficulty finding melina, and feeling like a failure. Patient endorses vague SI wanting to go to sleep and not wake up. Patient endorses thoughts of plans requests not to share and denies intent to act on them and denies hx of attempt. Patient has hx of Anxiety and Depression and was previously medicated for several years prior to the last year when patient waned off of Lexapro with PCP monitoring. Patient believes she is in need of a new rx to address her depression. Patient denies interest in inpatient hospitalization as she does not want to be away from her home, family and dog. Patient states that she has a therapist. CONTACT CENTER ANALYST calls patient's PCP office requesting ED f/u appt for inquiry about new MH rx for patient. It is reported that PCP office will call patient regarding new appt. It is the opinion of this CONTACT CENTER ANALYST that patient is safe to d/c to home with spouse upon medical clearance. Patient's mother is also a support to patient and has stopped by to visit patient as well. CONTACT CENTER ANALYST reviews the above with ED provider Dr. Stout who indicates agreement and understanding. Dr. Stout to evaluate patient for medical clearance. Plan RA Plan Patient to d/c to home upon medical clearance, patient to f/u with PCP and therapist for outpatient. Nancy Chatman, CAGE CLERK
--- NOTE | 2022-10-21 14:07 | ED.PSYCH ---
HPI - Psych General Chief Complaint: Psychiatric Symptoms Stated Complaint: SI Time Seen by Provider: 10/21/22 13:17 Source: patient and family Mode of arrival: Ambulatory History of Present Illness HPI Narrative: Patient here with . Brought in from home for depression and suicidal ideation but no plan. Patient's states she feels more passive about suicide ideation where she has no energy does not want to get out of bed or eat. However on direct questioning she does not want to hurt herself. Patient has been off Lexapro for over 4 or 5 months. She weaned herself off about a year ago. It was causing sleep disturbance and weight gain. Her primary care was aware of this. She is not been on any psychiatric medications since then. Patient progressively has been more depressed and unmotivated. She has a lot of stressors that are chiefly at home with her children. She does not feel appreciated by her children. She feels guilty and has a failure because not making/meeting needs for the family. She is never had any psychiatric inpatient care. Twelve years ago she was seen at urgent care but discharge home. Denies any recent illness. No visual or auditory hallucinations. No delusions. Related Data Home Medications Medication Instructions Recorded Confirmed [MULTIVITAMIN] PO QDAY ##0 07/15/16 09/12/20 [OMEGA 3 FISH OIL] 1 cap PO QDAY ##0 08/11/17 09/12/20 [VITAMIN D] PO QDAY ##0 08/11/17 09/12/20 fexofenadine-pseudoephedrine ER 1 tab PO QDAY ##0 08/11/17 09/12/20 180 mg-240 mg tablet,ext.release 24 hr (Elizabet-D 24 Hour) ibuprofen 200 mg tablet 200 mg PO Q4-6H PRN 06/26/20 09/12/20 Previous Rx's Medication Instructions Recorded buspirone 5 mg tablet 5 mg PO BID #60 tabs 01/30/21 escitalopram oxalate 20 mg tablet 20 mg PO QDAY #30 tabs 01/30/21 (Lexapro) metoclopramide HCl 10 mg tablet 10 mg PO Q6H PRN nausea and 10/21/22 (Reglan) vomiting #30 tabs pantoprazole 40 mg tablet,delayed 40 mg PO DAILY #30 tabs 10/21/22 release (Protonix) Allergies Allergy/AdvReac Type Severity Reaction Status Date / Time nitrofurantoin AdvReac Mild NAUSEA AND Verified 01/15/21 09:43 [From MACROBID] VOMITING genexa allergy Allergy Mild itching Uncoded 01/15/21 09:43 Review of Systems Review of Systems Narrative: GENERAL: negative chills, fatigue, malaise, fever, sweats. HEENT: negative sinus pain, ear pain, sore throat RESPIRATORY: negative dyspnea, cough CARDIOVASCULAR: negative chest pain, palpitations GASTROINTESTINAL: negative nausea, vomiting, abdominal pain : negative dysuria, frequency, hematuria MUSCULOSKELETAL: negative muscle or bony pain SKIN: negative rash, skin lesions NEUROLOGIC: negative weakness, numbness PSYCH: Positive depression positive SI ROS Unobtainable: All systems reviewed & are unremarkable except as noted in HPI and below Patient History Medical History Allergic rhinitis (02/06/12) Anxiety Depression Dry skin Encounter for routine gynecological examination (03/27/20) Excessive daytime sleepiness Fatigue due to sleep pattern disturbance Heavy menstrual bleeding Hyperlipidemia (07/15/16) Insomnia due to medical condition Major depressive disorder, recurrent episode, in full remission Obstructive sleep apnea Panic disorder without agoraphobia with panic attacks full remission Right lower quadrant pain Vertigo (02/06/12) Surgical History History of tonsillectomy Family History Grandmother History of pneumonia Mother Kidney stones Social History Smoking Status: Never smoker Smoking Status: Never smoker Exam Narrative Exam Narrative: GENERAL: in no distress, not toxic not dyspneic HEAD: Normocephalic. EYES: Pupils equal round ENT: Mucous membranes moist. NECK: Trachea midline. No thyromegaly CARDIOVASCULAR: Regular rate and rhythm without murmurs RESPIRATORY: Clear to auscultation. Breath sounds equal bilaterally. No wheezes, rales, or rhonchi. GASTROINTESTINAL: Abdomen soft, non-tender EXTREMITIES: No gross deformities. BACK: No flank tenderness. NEURO: AOx4. SKIN: Warm and dry PSYCH: Not anxious, is cooperative, however patient has flat affect. No pressured speech. No SI at this time. Not combative. Not tearful Initial Vital Signs Initial Vital Signs: Vital Signs Temperature 99 F 10/21/22 12:54 Pulse Rate 82 10/21/22 12:54 Respiratory Rate 16 10/21/22 12:54 Blood Pressure 165/82 H 10/21/22 12:54 Pulse Oximetry 99 10/21/22 12:54 Oxygen Delivery Method Room Air 10/21/22 12:54 Course Orders Ordered: Discontinued Medications Metoclopramide HCl (Metoclopramide Hcl 5 Mg Tablet) 10 mg PO NOW ONE Stop: 10/21/22 14:07 Last Admin: 10/21/22 14:42 Dose: 10 mg Documented By: TONNY Pantoprazole Sodium (Pantoprazole Dr 20 Mg Tablet) 40 mg PO NOW ONE Stop: 10/21/22 14:07 Last Admin: 10/21/22 14:42 Dose: 40 mg Documented By: TONNY Vital Signs Vital signs: Vital Signs - 8 hr 10/21/22 12:54 Temperature 99 F Pulse Rate 82 Respiratory Rate 16 Blood Pressure 165/82 H Pulse Oximetry 99 Oxygen Delivery Method Room Air MDM - Psych Lab Data 10/21/22 13:23 10/21/22 13:23 Labs: Lab Results 10/21/22 10/21/22 10/21/22 Range/Units 13:23 13:23 13:23 WBC 6.7 (4.5-11.0) X10^3/uL RBC 4.65 (4.0-5.2) X10^6/uL Hgb 14.6 (12.0-16.0) g/dL Hct 42.2 (36-46) % MCV 90.7 (80-100) fL MCH 31.3 (26-34) PG MCHC 34.5 (30-36) % RDW 12.2 (11.6-14.8) % Plt Count 220 (150-400) X10^3/uL Neut % (Auto) 76.4 H (50-75) % Lymph % (Auto) 15.3 L (25-40) % [place] % (Auto) 6.9 (3-14) % Eos % (Auto) 0.7 L (2-4) % Baso % (Auto) 0.7 (0-2) % Neut # (Auto) 5100 (8826-0659) /uL Lymph # (Auto) 1000 L (0028-8600) /uL [place] # (Auto) 500 (0-900) /uL Eos # (Auto) 100 (0-450) /uL Baso # (Auto) 0 (0-100) /uL Sodium 137 (137-145) mmol/L Potassium 3.7 (3.4-5.1) mmol/L Chloride 102 (98-107) mmol/L Carbon Dioxide 25 (22-32) mmol/L BUN 14 (7-17) mg/dL Creatinine 0.71 (0.52-1.04) mg/dL Estimated GFR > 60 (>60) mL/min BUN/Creatinine Ratio 19.7 (6-22) Glucose 91 (70-100) mg/dL Calcium 9.0 (8.4-10.2) mg/dL Total Bilirubin 1.0 (0.2-1.3) mg/dL AST 23 (14-36) IU/L ALT 18 (<35) IU/L Alkaline Phosphatase 82 (38-126) U/L Total Protein 8.1 (6.3-8.2) g/dL Albumin 4.6 (3.5-5.0) g/dL Globulin 3.5 (1.7-4.1) g/dL Albumin/Globulin Ratio 1.3 (1.0-2.8) TSH 2.05 (0.47-4.68) uIU/mL Free T4 1.31 (0.78-2.19) ng/dL Urine RBC (0-5/HPF) Urine WBC (0-5/HPF) Ur Squamous Epith Cells (0-5/HPF) Urine Bacteria (None) Ur Culture Indicated? Salicylates < 1.0 (<20) mg/dL U Opiates 300ng/mL cut (Negative) Ur Oxycodone Screen (Negative) Urine Methadone Screen (Negative) Acetaminophen < 10 (10-30) ug/mL Ur Barbiturates Screen (Negative) U Tricyclic Antidepress (Negative) Ur Phencyclidine Scrn (Negative) Ur Amphetamines Screen (Negative) U Methamphetamines Scrn (Negative) Ur MDMA Scrn (Ecstasy) (Negative) U Benzodiazepines Scrn (Negative) Urine Cocaine Screen (Negative) U Marijuana (THC) Screen (Negative) Ethyl Alcohol < 10 ( - 10) mg/dL 10/21/22 10/21/22 Range/Units 13:46 13:46 WBC (4.5-11.0) X10^3/uL RBC (4.0-5.2) X10^6/uL Hgb (12.0-16.0) g/dL Hct (36-46) % MCV (80-100) fL MCH (26-34) PG MCHC (30-36) % RDW (11.6-14.8) % Plt Count (150-400) X10^3/uL Neut % (Auto) (50-75) % Lymph % (Auto) (25-40) % [place] % (Auto) (3-14) % Eos % (Auto) (2-4) % Baso % (Auto) (0-2) % Neut # (Auto) (3394-7483) /uL Lymph # (Auto) (8506-5648) /uL [place] # (Auto) (0-900) /uL Eos # (Auto) (0-450) /uL Baso # (Auto) (0-100) /uL Sodium (137-145) mmol/L Potassium (3.4-5.1) mmol/L Chloride (98-107) mmol/L Carbon Dioxide (22-32) mmol/L BUN (7-17) mg/dL Creatinine (0.52-1.04) mg/dL Estimated GFR (>60) mL/min BUN/Creatinine Ratio (6-22) Glucose (70-100) mg/dL Calcium (8.4-10.2) mg/dL Total Bilirubin (0.2-1.3) mg/dL AST (14-36) IU/L ALT (<35) IU/L Alkaline Phosphatase (38-126) U/L Total Protein (6.3-8.2) g/dL Albumin (3.5-5.0) g/dL Globulin (1.7-4.1) g/dL Albumin/Globulin Ratio (1.0-2.8) TSH (0.47-4.68) uIU/mL Free T4 (0.78-2.19) ng/dL Urine RBC None seen (0-5/HPF) Urine WBC None seen (0-5/HPF) Ur Squamous Epith Cells 0-1 /hpf (0-5/HPF) Urine Bacteria None seen (None) Ur Culture Indicated? Cult not indicated Salicylates (<20) mg/dL U Opiates 300ng/mL cut Negative (Negative) Ur Oxycodone Screen Negative (Negative) Urine Methadone Screen Negative (Negative) Acetaminophen (10-30) ug/mL Ur Barbiturates Screen Negative (Negative) U Tricyclic Antidepress Negative (Negative) Ur Phencyclidine Scrn Negative (Negative) Ur Amphetamines Screen Negative (Negative) U Methamphetamines Scrn Negative (Negative) Ur MDMA Scrn (Ecstasy) Negative (Negative) U Benzodiazepines Scrn Negative (Negative) Urine Cocaine Screen Negative (Negative) U Marijuana (THC) Screen Negative (Negative) Ethyl Alcohol ( - 10) mg/dL Point of Care Testing Test Results Negative Urine Dip Bedside Urine Glucose Negative Bedside Urine Bilirubin - Negative Bedside Urine Ketone ++ 40 Urine Specific [place] 1.010 Bedside Urine Occult Blood +/- Bedside Urine pH 6.0 Bedside Urine Protein - Negative Bedside Urine Urobilinogen - Negative Bedside Urine Nitrite - Negative Bedside Urine Leukocytes - Negative Esterase MDM Narrative Medical decision making narrative: Patient here with . Brought in from home for depression and suicidal ideation but no plan. Patient's states she feels more passive about suicide ideation where she has no energy does not want to get out of bed or eat. However on direct questioning she does not want to hurt herself. Patient has been off Lexapro for over 4 or 5 months. She weaned herself off about a year ago. It was causing sleep disturbance and weight gain. Her primary care was aware of this. She is not been on any psychiatric medications since then. Patient progressively has been more depressed and unmotivated. She has a lot of stressors that are chiefly at home with her children. She does not feel appreciated by her children. She feels guilty and has a failure because not making/meeting needs for the family. She is never had any psychiatric inpatient care. Twelve years ago she was seen at urgent care but discharge home. Denies any recent illness. No visual or auditory hallucinations. No delusions. After history and exam CBC CMP TSH drug screen test urinalysis alcohol level aspirin level Tylenol level [facility] CC: Suicide ideation/depression Complicating co-morbidities: History of depression Data collected from: Patient and Medical records reviewed: No recent visit for this complaint Differential considered: Includes but not limited to suicide ideation, depression, psychosis, failure to thrive Exam documented above, pertinent findings include: Patient is cooperative with flat affect Lab Test results independently reviewed as above. Pertinent findings: WBC 6.7 hemoglobin 14.6 sodium 137 potassium 3.7 BUN 14 creatinine 0.71 glucose 91 aspirin less than 1 Tylenol less than 10 alcohol less than 10 Urinalysis positive ketones [place] nitrite negative leukocyte esterase Consultations: 2:00 p.m.. Spoke with Nancy social sciences instructor. She has spoken and interviewed with patient and family. At this time patient is low risk. They are motivated to follow up with primary care. They already have appointment with primary care next Wednesday. Treatments: Reglan Protonix Re-evaluations: 2:30 p.m.. Patient denies any SI at this time. She does not want inpatient treatment. She feels safe to go home and there is good family support. works from home. They have appointment established for next Wednesday with primary care. hospital tray service workerjeannette and Rob spoke with patient and and mother, her mother works here at this hospital, they feel safe to take patient home and she feels safe to go home. They have good support system. Family will help with the children. Patient will reach out to family if there is any changes or concerns as well. Patient does not wish for crisis hotline to reach out tomorrow to call for checkup. Return precautions reviewed with patient and family. They desire discharge home. Patient does not want inpatient treatment. They do understand primary care needs to be seen to start any medications for psychiatric care. Discussion: Appropriate for discharge home. Exam and laboratory studies are reassuring. Patient does have good home support. Social work Services has been involved in patient's care and good communication with patient and family and mother. Diagnosis: Suicide ideation/depression Discharge Plan Departure Patient Disposition: Home Clinical Impression: Depression, Suicide ideation Instructions: DI for Depression -- Adult, DI for Suicidal Ideation-Adult, Nausea and Vomiting-Adult Activity Restrictions/Additional Instructions: Return immediately if any questions or concerns or if any worsening symptoms or thoughts of hurting yourself. Please do have family to continue support and observation home for any changes. Prescription medication has been sent to your pharmacy to [facility] today. Please see your family doctor next Wednesday as scheduled. Return if worse if any questions or concerns. Prescriptions: New metoclopramide HCl [Reglan] 10 mg tablet 10 mg PO Q6H PRN (Reason: nausea and vomiting) Qty: 30 0RF pantoprazole [Protonix] 40 mg tablet,delayed release (DR/EC) 40 mg PO DAILY Qty: 30 0RF No Action [MULTIVITAMIN] PO QDAY Qty: 0 fexofenadine-pseudoephedrine [Elizabet-D 24 Hour] 180 MG/240 MG tablet extended release 24 hr 1 tab PO QDAY Qty: 0 [VITAMIN D] PO QDAY Qty: 0 [OMEGA 3 FISH OIL] 1 cap PO QDAY Qty: 0 buspirone 5 mg tablet 5 mg PO BID Qty: 60 0RF Rx Instructions: needs to est care with a new provider for any further refills escitalopram oxalate [Lexapro] 20 mg tablet 20 mg PO QDAY Qty: 30 0RF Rx Instructions: needs to establish with a new provider for any further refills ibuprofen 200 mg tablet 200 mg PO Q4-6H PRN Referrals: Felisha Hanna DO [Primary Care Provider] - Stand Alone Forms: Patient Portal/API
[2022-10-21 14:08] LABS: Free T4, Direct Thyroxine 1.31 ng/dL (0.78-2.19)
[2022-10-21 14:22] LABS: Thyroid Stimulating Hormone 2.05 uIU/mL (0.47-4.68)
[2022-10-21 14:24] LABS: Ur Creatinine Normal (Normal); Ur Specific Gravity Normal (Normal); Urine Tetrahydrocannabinol Negative (Negative); Urine pH Normal (Normal)
[2022-10-21 14:25] LABS: UR Morphine/Opiate cutoff 300 Negative (Negative); Urine Amphetamines Negative (Negative); Urine Barbiturates Negative (Negative); Urine Benzodiazepines Negative (Negative); Urine Cocaine Negative (Negative); Urine MDMA Negative (Negative); Urine Methadone Negative (Negative); Urine Methamphetamines Negative (Negative); Urine Oxycodone Negative (Negative); Urine Phencyclidine Negative (Negative); Urine Tricyclic Antidepressant Negative (Negative)
[2022-10-21 14:28] LABS: Bacteria Urine None Seen; Culture Indicated Urine Cult Not Indicated; RBC Urine None Seen (0-5/HPF); Squamous Epithelial Cell Urine 0-1 /HPF (0-5/HPF); WBC Urine None Seen (0-5/HPF)
[2022-10-21] MEDS: METOCLOPRAMIDE HCL 5 MG TABLET 10 MG PO (14:42)
[2022-10-21] MEDS: PANTOPRAZOLE DR 20 MG TABLET 40 MG PO (14:42)
[2022-10-21 14:55] VITALS: BP 129/76; PULSE 70; RESP 16; TEMP 37.1; O2SAT 98
== END 2022-10-21 14:56 | disposition home or self-care (01) ==
PROVIDERS: Emergency Provider Emergency Medicine; Family Provider Internal Medicine; PCP Student in an Organized Health Care Education/Training Program
DX: F32.A Depression, unspecified (principal); R45.851 Suicidal ideations
CPT/HCPCS: 36415; 80053; 80305; 80320; 80329; 81003; 81015; 81025; 84439; 84443; 85025; 99283; G0480

== ENCOUNTER → 2023-05-25 08:21 | Outpatient (CLI) | payer BC, SELFPAY ==
--- NOTE | 2023-05-25 08:24 | DI.MG.S_ITS ---
BILATERAL DIGITAL SCREENING MAMMOGRAM 3D/2D WITH CAD: 05/25/2023 CLINICAL: Routine screening. Comparison is made to exams dated: 01/27/2022 mammogram, 01/22/2021 mammogram, and 12/26/2019 mammogram - [facility]. Both breasts are heterogeneously dense, which may obscure small masses (category c / 51-75% glandular tissue). Current study was also evaluated with a Computer Aided Detection (CAD) system. There is a stable benign cyst in the right breast. No significant masses, calcifications, or other findings are seen in either breast. There has been no significant interval change. IMPRESSION: BENIGN There is no mammographic evidence of malignancy. A 1 year screening mammogram is recommended. Based on the Tyrer Cuzick model (a risk assessment model) the patient's lifetime risk is 14.2% and her 10 year risk is 3.4%. According to the ACR, ACS, and NCCN guidelines, an annual breast MRI exam along with mammogram is recommended if the patient's lifetime risk is 20% or greater. This exam was interpreted at Station ID: [id number]. NOTE: For mammograms, a report in lay terms will be sent to the patient. Approximately 15% of breast malignancies will not be visualized mammographically. In the management of a palpable breast mass, a negative mammogram must not discourage biopsy of a clinically suspicious lesion. Electronically Signed By: Giuliano chappell/michelle:05/25/2023 14:24:15 letter sent: Normal Exam ACR BI-RADS Category 2: Benign Finding(s) 3342F
== END ==
PROVIDERS: Family Provider Internal Medicine; PCP Student in an Organized Health Care Education/Training Program; Referring Provider Student in an Organized Health Care Education/Training Program; Visit Provider Student in an Organized Health Care Education/Training Program
DX: Z12.31 Encounter for screening mammogram for malignant neoplasm of breast (principal); R92.333 Mammographic heterogeneous density, bilateral breasts
CPT/HCPCS: 77063; 77067

== ENCOUNTER → 2023-10-22 07:54 | Outpatient (CLI) | payer BC, SELFPAY ==
[2023-10-22 09:32] LABS: Creatinine Urine Random 27.51 mg/dL
[2023-10-22 09:34] LABS: Alanine Aminotransferase 18 IU/L (<35); Albumin 3.9 g/dL (3.5-5.0); Albumin Globulin Ratio 1.4 (1.0-2.8); Alkaline Phosphatase 71 U/L (38-126); Aspartate Aminotransferase 26 IU/L (14-36); BUN Creatinine Ratio 21.2 (6-22); Bilirubin Total 0.5 mg/dL (0.2-1.3); Blood Urea Nitrogen 14 mg/dL (7-17); Calcium 8.3 mg/dL (8.4-10.2); Carbon Dioxide 25 mmol/L (22-32); Chloride 108 mmol/L (98-107); Cholesterol 221 mg/dL (140-199); Creatine Kinase 72 U/L (30-135); Estimated Glomerular Filt Rate > 60 mL/min (>60); Globulin 2.7 g/dL (1.7-4.1); Glucose 97 mg/dL (70-100); HDL Cholesterol 51 mg/dL (40-60); HEMOLYSIS < 15 (0-50); LDL Cholesterol Calculated 141 mg/dL (<100); Potassium 4.1 mmol/L (3.4-5.1); Sodium 138 mmol/L (137-145); Total Protein 6.6 g/dL (6.3-8.2); Triglycerides 144 mg/dL (35-150)
[2023-10-22 09:41] LABS: Microalbumin Urine Random < 0.6 mg/dL (0-1.6)
[2023-10-26 07:21] LABS: Apolipoprotein B 107 mg/dL (<90)
[2023-10-27 16:38] LABS: Lipoprotein (a) 44.2 nmol/L (<75.0)
== END ==
LOC: LAB 07:56
PROVIDERS: Family Provider Internal Medicine; PCP Student in an Organized Health Care Education/Training Program; Referring Provider Internal Medicine; Visit Provider Internal Medicine
DX: E78.00 Pure hypercholesterolemia, unspecified (principal)
CPT/HCPCS: 36415; 80053; 80061; 82043; 82172; 82550; 82570; 83036; 83695

== ENCOUNTER 2023-12-18 09:41 | Emergency (ER) | payer BC, SELFPAY ==
[2023-12-18 09:44] VITALS: BP 157/90; PULSE 86; RESP 18; TEMP 37.1; O2SAT 99; BMI 26.4
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
--- NOTE | 2023-12-18 10:57 | PC.NURSE ---
PURCHASE ANALYST note: Provider in room with patient
[2023-12-18 11:18] LABS: UR Morphine/Opiate cutoff 300 Negative (Negative); Ur Creatinine Normal (Normal); Ur Specific Gravity Normal (Normal); Urine Amphetamines Negative (Negative); Urine Barbiturates Negative (Negative); Urine Benzodiazepines Negative (Negative); Urine Cocaine Negative (Negative); Urine MDMA Negative (Negative); Urine Methadone Negative (Negative); Urine Methamphetamines Negative (Negative); Urine Oxycodone Negative (Negative); Urine Phencyclidine Negative (Negative); Urine Tetrahydrocannabinol Negative (Negative); Urine Tricyclic Antidepressant Negative (Negative); Urine pH Normal (Normal)
--- NOTE | 2023-12-18 11:40 | PC.NURSE ---
BREAK OUT MAN note: SKIN CARE CONSULTANT in room with patient
--- NOTE | 2023-12-18 11:48 | PC.NURSE ---
CIVIL DRAFTING TECHNICIAN Note: E TAILER still consulting with patient
--- NOTE | 2023-12-18 12:15 | PC.NURSE ---
Pt currently in room with BESSEMER CONVERTER BLOWER talking about needs/plan. Full assessment deffered at this time.
[2023-12-18 12:52] LABS: Add Manual Diff / Slide Review NO; Basophils Absolute Auto 0 /uL (0-100); Basophils Percent Auto 0.7 % (0-2); Eosinophils Absolute Auto 100 /uL (0-450); Eosinophils Percent Auto 0.8 % (2-4); Hematocrit 41.7 % (36-46); Lymphocytes Absolute Auto 1200 /uL (1100-4500); Lymphocytes Percent Auto 18.3 % (25-40); Mean Corpuscular HGB Conc 33.6 % (30-36); Mean Corpuscular Volume 92.4 fL (80-100); Monocytes Absolute Auto 500 /uL (0-900); Neutrophils Absolute Auto 5000 /uL (1500-7000); Neutrophils Percent Auto 73.2 % (50-75); Platelet Count 254 X10^3/uL (150-400); Red Blood Cell Count 4.51 X10^6/uL (4.0-5.2); White Blood Cell Count 6.8 X10^3/uL (4.5-11.0)
[2023-12-18 13:04] LABS: Alanine Aminotransferase 28 IU/L (<35); Albumin 4.3 g/dL (3.5-5.0); Albumin Globulin Ratio 1.3 (1.0-2.8); Alkaline Phosphatase 88 U/L (38-126); Aspartate Aminotransferase 30 IU/L (14-36); BUN Creatinine Ratio 19.4 (6-22); Bilirubin Total 0.4 mg/dL (0.2-1.3); Blood Urea Nitrogen 12 mg/dL (7-17); Calcium 8.8 mg/dL (8.4-10.2); Carbon Dioxide 26 mmol/L (22-32); Chloride 107 mmol/L (98-107); Estimated Glomerular Filt Rate > 60 mL/min (>60); Ethanol (ETOH) < 10 mg/dL; Globulin 3.2 g/dL (1.7-4.1); Glucose 104 mg/dL (70-100); HEMOLYSIS < 15 (0-50); Potassium 4.2 mmol/L (3.4-5.1); Sodium 139 mmol/L (137-145); Total Protein 7.5 g/dL (6.3-8.2)
[2023-12-18 13:35] LABS: TSH w/ Reflex to FT4 2.58 uIU/mL (0.47-4.68)
[2023-12-18 13:47] VITALS: PULSE 77; O2SAT 97
[2023-12-18 13:48] VITALS: BP 115/62; PULSE 79; O2SAT 98
[2023-12-18 13:48] LABS: COVID19 -Nasal RAPID Negative (Negative)
[2023-12-18 13:51] VITALS: BP 115/62; PULSE 73; RESP 20; TEMP 36.8; O2SAT 100
--- NOTE | 2023-12-18 14:38 | PC.NURSE ---
PORT TRAFFIC MANAGER Note: OCCUPATIONAL SAFETY AND HEALTH MANAGER in room with patient
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
--- NOTE | 2023-12-18 16:04 | PC.NURSE ---
SOLE SEAMER Note: Pts came out refusing transfer to [facility] of reviews he read online.
[2023-12-18 16:18] VITALS: PULSE 101; O2SAT 100
[2023-12-18 16:19] VITALS: BP 125/82; PULSE 91; O2SAT 99
--- NOTE | 2023-12-18 16:19 | PC.NURSE ---
Pt refusing to go to [facility] now. Pts and family were researching [facility] and did not like the reviews online that they saw. The patients told Maritza that [facility] is still doing lobotomies.
--- NOTE | 2023-12-19 08:30 | CM.DPNOTE ---
Post Discharge Update to Chart This RAMP SUPERVISOR requested yesterday afternoon to return to room, spouse present, to meet w/ patient who had been wavering on whether to go home or to go to [facility] ([place], [place]). Patient was sleepy and withdrawn. Discussed this RAMP SUPERVISOR's recommendation for inpatient stay for safety planning, stabilization, medication review and group therapy. Patient had inevitably agreed to go to [facility]. Called again before transport arrived and this RAMP SUPERVISOR leaving for the day; spoke with patient by phone who explained she and her were looking at reviews and court cases outlined online and patient did not feel safe discharging to [facility]. Once again encouraged patient to consider her behavioral health needs. Patient opted to return home. This RAMP SUPERVISOR requested that patient be sent home with information on [facility] and that [facility] be updated. ISMAEL Soto
== END 2023-12-18 16:29 | disposition home or self-care (01) ==
PROVIDERS: Emergency Provider Emergency Medicine; Family Provider Internal Medicine; PCP Student in an Organized Health Care Education/Training Program
DX: R45.851 Suicidal ideations (principal); Z11.52 Encounter for screening for COVID-19
CPT/HCPCS: 36415; 80053; 80305; 80320; 81003; 81025; 84443; 85025; 87635; 99284

== ENCOUNTER → 2024-05-29 17:52 | Outpatient (CLI) | payer BC, SELFPAY ==
--- NOTE | 2024-05-29 17:52 | DI.MG.S_ITS ---
BILATERAL DIGITAL SCREENING MAMMOGRAM 3D/2D WITH CAD: 05/29/2024 CLINICAL: Routine screening. Comparison is made to exams dated: 05/25/2023 mammogram, 01/27/2022 mammogram, and 01/22/2021 mammogram - [facility]. The breasts are heterogeneously dense, which may obscure small masses (category c / 51-75% glandular tissue). Current study was also evaluated with a Computer Aided Detection (CAD) system. There is a stable benign cyst in the right breast. No significant masses, calcifications, or other findings are seen in either breast. There has been no significant interval change. IMPRESSION: BENIGN There is no mammographic evidence of malignancy. A 1 year screening mammogram is recommended. Based on the Tyrer Cuzick model (a risk assessment model) the patient's lifetime risk is 13.3% and her 10 year risk is 3.3%. According to the ACR, ACS, and NCCN guidelines, an annual breast MRI exam along with mammogram is recommended if the patient's lifetime risk is 20% or greater. This exam was interpreted at Station ID: [id number]. NOTE: For mammograms, a report in lay terms will be sent to the patient. Approximately 15% of breast malignancies will not be visualized mammographically. In the management of a palpable breast mass, a negative mammogram must not discourage biopsy of a clinically suspicious lesion. Electronically Signed By: Vonnie roman/michelle:05/31/2024 14:28:51 letter sent: Normal Exam ACR BI-RADS Category 2: Benign
== END ==
LOC: MAMMO 17:52
PROVIDERS: Family Provider Internal Medicine; PCP Student in an Organized Health Care Education/Training Program; Referring Provider Student in an Organized Health Care Education/Training Program; Visit Provider Student in an Organized Health Care Education/Training Program
DX: Z12.31 Encounter for screening mammogram for malignant neoplasm of breast (principal); R92.333 Mammographic heterogeneous density, bilateral breasts
CPT/HCPCS: 77063; 77067

== ENCOUNTER → 2024-07-10 14:17 | Outpatient (CLI) | payer BC, SELFPAY ==
[2024-07-10 17:18] LABS: HEMOLYSIS < 15 (0-50); Iron 106 ug/dL (37-170)
[2024-07-10 17:36] LABS: Percent Iron Saturation 41 % (15-50); Total Iron Binding Capacity 261 ug/dL (265-497); Transferrin 250 mg/dL (206-381)
[2024-07-10 18:21] LABS: Ferritin 11 ng/mL (11-264)
== END ==
PROVIDERS: Family Provider Internal Medicine; PCP Student in an Organized Health Care Education/Training Program; Referring Provider Student in an Organized Health Care Education/Training Program; Visit Provider Student in an Organized Health Care Education/Training Program
DX: F41.9 Anxiety disorder, unspecified (principal); R23.3 Spontaneous ecchymoses; R23.2 Flushing; F32.A Depression, unspecified; Z83.49 Family history of other endocrine, nutritional and metabolic diseases
CPT/HCPCS: 36415; 81256; 82728; 83540; 83550

== ENCOUNTER → 2024-07-24 11:16 | Outpatient (CLI) | payer BC, SELFPAY ==
[2024-07-24 12:27] LABS: Luteinizing Hormone 5.98 mIU/mL
[2024-07-24 12:41] LABS: TSH w/ Reflex to FT4 2.33 uIU/mL (0.47-4.68)
== END ==
PROVIDERS: Family Provider Internal Medicine; PCP Student in an Organized Health Care Education/Training Program; Referring Provider Student in an Organized Health Care Education/Training Program; Visit Provider Student in an Organized Health Care Education/Training Program
DX: N95.1 Menopausal and female climacteric states (principal)
CPT/HCPCS: 36415; 83001; 83002; 84443

== ENCOUNTER → 2024-10-10 08:58 | Outpatient (CLI) | payer BC, SELFPAY | PROVIDERS: Family Provider Internal Medicine; PCP Student in an Organized Health Care Education/Training Program; Referring Provider Student in an Organized Health Care Education/Training Program; Visit Provider Student in an Organized Health Care Education/Training Program | DX: Z01.84 Encounter for antibody response examination (principal) | CPT/HCPCS: 36415; 86706 ==

== ENCOUNTER → 2025-03-08 07:34 | Outpatient (CLI) | payer BC, SELFPAY | PROVIDERS: Family Provider Internal Medicine; PCP Student in an Organized Health Care Education/Training Program; Referring Provider Student in an Organized Health Care Education/Training Program; Visit Provider Student in an Organized Health Care Education/Training Program | DX: Z11.7 Encounter for testing for latent tuberculosis infection (principal) | CPT/HCPCS: 36415; 86480 ==

== ENCOUNTER 2025-03-21 06:33 | Emergency (ER) | payer BC, SELFPAY ==
[2025-03-21 06:39] VITALS: PULSE 98; O2SAT 97
[2025-03-21 06:49] VITALS: BP 153/102; PULSE 100; RESP 22; TEMP 37.3; O2SAT 96; BMI 25.7
--- NOTE | 2025-03-21 07:05 | ED.ANXIETY ---
HPI - Anxiety General Chief Complaint: Anxiety Stated Complaint: Needs help, anxiety, vertigo Time Seen by Provider: 03/21/25 06:41 Source: patient, RN notes reviewed and old records reviewed Mode of arrival: Ambulatory Limitations: no limitations History of Present Illness HPI narrative: 54-year-old female with a history of anxiety presents with complaint of increased anxiety, vertigo symptoms she states she had for 10 years which were worsened by interaction with her prior spouse deposition yesterday. Patient states her anxiety which has been quite bad when they were together rapidly worsened after this interaction. Patient notes she has had some abdominal discomfort for the past several months particularly when she eats food. She describes it as sort of a epigastric. It does not radiate. She has had diarrhea, she has not had any black or bloody stools. No dysuria urgency or frequency. She states she is not eating much food. She was on a daily medication for anxiety but had side effects and stopped in the June. I she is currently on progesterone and estrogen patch as well as nasal steroid. Allergies to Macrobid. Patient does have follow up with primary care, follows with a therapist and notes has quite a bit of support. She is accompanied by her father. Related Data Home Medications ?Medication ?Instructions ?Recorded ?Confirmed [MULTIVITAMIN] PO QDAY ##0 07/15/16 05/15/24 [OMEGA 3 FISH OIL] 1 cap PO QDAY ##0 08/11/17 05/15/24 [VITAMIN D] PO QDAY ##0 08/11/17 05/15/24 fexofenadine-pseudoephedrine ER 1 tab PO QDAY ##0 08/11/17 05/15/24 180 mg-240 mg tablet,ext.release 24 hr (Elizabet-D 24 Hour) ibuprofen 200 mg tablet 200 mg PO Q4-6H PRN 06/26/20 05/15/24 Previous Rx's ?Medication ?Instructions ?Recorded buspirone 5 mg tablet 5 mg PO BID #60 tabs 01/30/21 escitalopram oxalate 20 mg tablet 20 mg PO QDAY #30 tabs 01/30/21 (Lexapro) metoclopramide HCl 10 mg tablet 10 mg PO Q6H PRN nausea and 10/21/22 (Reglan) vomiting #30 tabs pantoprazole 40 mg tablet,delayed 40 mg PO DAILY #30 tabs 10/21/22 release (Protonix) triamcinolone acetonide 0.025 % 1 applic topical BID #15 grams 05/15/24 topical ointment lorazepam 1 mg tablet (Ativan) See Rx Instructions .Route 03/21/25 .COMPLEX PRN anxiety #10 tabs Allergies Allergy/AdvReac Type Severity Reaction Status Date / Time nitrofurantoin (From AdvReac Mild NAUSEA AND Verified 05/15/24 09:20 MACROBID) VOMITING genexa allergy Allergy Mild itching Uncoded 05/15/24 09:20 Review of Systems Review of Systems ROS Unobtainable: All systems reviewed & are unremarkable except as noted in HPI and below Patient History Medical History Anxiety Depression Insomnia due to medical condition Fatigue due to sleep pattern disturbance Encounter for routine gynecological examination (03/27/20) Dry skin Obstructive sleep apnea Excessive daytime sleepiness Heavy menstrual bleeding Right lower quadrant pain Hyperlipidemia (07/15/16) Vertigo (02/06/12) Allergic rhinitis (02/06/12) Panic disorder without agoraphobia with panic attacks full remission Major depressive disorder, recurrent episode, in full remission Surgical History History of tonsillectomy Family History Grandmother History of pneumonia Mother Kidney stones Social History Smoking Status: Never smoker Smoking Status: Never smoker alcohol intake frequency: holidays/special occasions only Exam Narrative Exam Narrative: GENERAL: Alert and oriented x three, female in [id number] distress HEENT: Head normocephalic, atraumatic, EOMI, pupils reactive, face symmetric, moist mucous membranes NECK: Supple, full range of motion CARDIOVASCULAR: Regular rate and rhythm without murmurs, rubs or gallops. RESPIRATORY: Breath sounds equal bilaterally, no wheezes rales or rhonchi. ABDOMEN: Soft, nontender. Normoactive bowel sounds all 4 quadrants. No guarding or rebound, rigidity, no mass : No CVA tenderness EXTREMITIES: Normal range of motion, no clubbing or edema. Neurovascularly intact NEUROLOGICAL: Cranial nerves II through XII grossly intact. Moving all extremities SKIN: Warm, dry, no petechiae, no rashes or lesions. PSYCH: Anxiety, no SI or HI Initial Vital Signs Initial Vital Signs: Vital Signs Pulse Rate 98 H 03/21/25 06:39 Pulse Oximetry 97 03/21/25 06:39 Course Orders Ordered: Discontinued Medications Sodium Chloride (Normal Saline 0.9%) 1,000 mls @ 1,000 mls/hr IV BOLUS ONE Stop: 03/21/25 09:37 Last Infusion: 03/21/25 09:57 Dose: Infused Documented By: Admin: 03/21/25 08:41 Dose: 1,000 mls/hr Documented By: KEESHA Lorazepam (Lorazepam 0.5 Mg Tablet) 0.5 mg PO NOW ONE Stop: 03/21/25 07:27 Last Admin: 03/21/25 07:34 Dose: 0.5 mg Documented By: KEESHA Lorazepam (Lorazepam 0.5 Mg Tablet) 0.5 mg PO NOW ONE Stop: 03/21/25 08:39 Last Admin: 03/21/25 08:41 Dose: 0.5 mg Documented By: KEESHA Ondansetron HCl (Ondansetron 4 Mg/2 Ml Inj) 4 mg IV NOW ONE Stop: 03/21/25 07:53 Last Admin: 03/21/25 07:59 Dose: 4 mg Documented By: KEESHA Vital Signs Vital signs: Vital Signs - 8 hr 03/21/25 06:39 03/21/25 06:49 03/21/25 08:01 Temperature 99.2 F Pulse Rate 98 H 100 H Respiratory Rate 22 Blood Pressure 153/102 H Pulse Oximetry 97 96 99 Oxygen Delivery Method Room Air 03/21/25 08:02 03/21/25 08:02 Temperature Pulse Rate Respiratory Rate Blood Pressure 137/68 Pulse Oximetry 99 Oxygen Delivery Method MDM - Anxiety Lab Data 03/21/25 07:41 03/21/25 07:41 Labs: Lab Results 03/21/25 Range/Units 07:41 WBC 5.2 (4.5-11.0) X10^3/uL RBC 4.77 (4.0-5.2) X10^6/uL Hgb 14.8 (12.0-16.0) g/dL Hct 42.5 (36-46) % MCV 89.1 (80-100) fL MCH 30.9 (26-34) PG MCHC 34.7 (30-36) % RDW 12.5 (11.6-14.8) % Plt Count 239 (150-400) X10^3/uL Neut % (Auto) 74.4 (50-75) % Lymph % (Auto) 16.9 L (25-40) % [place] % (Auto) 6.3 (3-14) % Eos % (Auto) 1.2 L (2-4) % Baso % (Auto) 1.2 (0-2) % Neut # (Auto) 3900 (8224-2128) /uL Lymph # (Auto) 900 L (9725-4572) /uL [place] # (Auto) 300 (0-900) /uL Eos # (Auto) 100 (0-450) /uL Baso # (Auto) 100 (0-100) /uL Sodium 138 (137-145) mmol/L Potassium 4.1 (3.4-5.1) mmol/L Chloride 106 (98-107) mmol/L Carbon Dioxide 23 (22-32) mmol/L BUN 16 (7-17) mg/dL Creatinine 0.65 (0.52-1.04) mg/dL Estimated GFR > 60 (>60) mL/min BUN/Creatinine Ratio 24.6 H (6-22) Glucose 110 H (70-99) mg/dL Calcium 9.1 (8.4-10.2) mg/dL Total Bilirubin 0.8 (0.2-1.3) mg/dL AST 25 (14-36) IU/L ALT 16 (<35) IU/L Alkaline Phosphatase 67 (38-126) U/L Total Protein 8.0 (6.3-8.2) g/dL Albumin 4.6 (3.5-5.0) g/dL Globulin 3.4 (1.7-4.1) g/dL Albumin/Globulin Ratio 1.4 (1.0-2.8) Lipase 48 (23-300) U/L TSH 1.86 (0.47-4.68) uIU/mL Ethyl Alcohol < 10 (<10) mg/dL Urine Dip Bedside Urine Glucose Negative Bedside Urine Bilirubin - Negative Bedside Urine Ketone + 15 Urine Specific [place] 1.000 Bedside Urine Occult Blood - Negative Bedside Urine pH 6.0 Bedside Urine Protein - Negative Bedside Urine Urobilinogen - Negative Bedside Urine Nitrite - Negative Bedside Urine Leukocytes - Negative Esterase MDM Narrative Medical decision making narrative: Labs labs show normal white count, hemoglobin and platelets, chemistries are otherwise appropriate glucose is 110, LFTs are negative TSH is 1.86 Urine, shows ketones Patient received Ativan, patient is still feeling quite anxious aspirin additional dose was given additional 0.5 mg. Patient also received fluids. Patient is feeling a little bit better, discussed possibly starting medication she has had multiple medications in the past and had side effects with some of them so we will have her follow up with primary care working to set up a follow up appointment for her in the short term by reaching out to her primary care physician we will give a short course of Ativan in the meantime. Patient contracts for safety. Discharge Plan Departure Patient Disposition: Home Clinical Impression: Anxiety Activity Restrictions/Additional Instructions: Follow up with your physician. If you are having persistent abdominal pain particularly when you need food there is a possibility could have an ulcer I would recommend you taking Pepcid 40 mg daily or a similar medication until you see your physician. You may need to follow up for an EGD for evaluation for gastric or peptic ulcer. You have an appointment with Dr. Zuniga on 03/27/25 with a 10:15am check-in and an 10:30am appointment. You can take medication as prescribed if you find this helpful. This medication can make you sleepy. Prescription sent to [facility] in [place]. Please return if you have new or worsening symptoms, if you feel unsafe in any point, severe abdominal back or flank pain, persistent vomiting, black or bloody stools, or other new or concerning changes. Prescriptions: New lorazepam [Ativan] 1 mg tablet See Rx Instructions .ROUTE .COMPLEX PRN (Reason: anxiety) Qty: 10 0RF Rx Instructions: You can take 1/2-1 tablets b.i.d. PRN anxiety No Action triamcinolone acetonide 0.025 % ointment 1 applic topical BID Qty: 15 0RF [MULTIVITAMIN] PO QDAY Qty: 0 fexofenadine-pseudoephedrine [Elizabet-D 24 Hour] 180 MG/240 MG tablet extended release 24 hr 1 tab PO QDAY Qty: 0 [VITAMIN D] PO QDAY Qty: 0 [OMEGA 3 FISH OIL] 1 cap PO QDAY Qty: 0 buspirone 5 mg tablet 5 mg PO BID Qty: 60 0RF Rx Instructions: needs to est care with a new provider for any further refills escitalopram oxalate [Lexapro] 20 mg tablet 20 mg PO QDAY Qty: 30 0RF Rx Instructions: needs to establish with a new provider for any further refills ibuprofen 200 mg tablet 200 mg PO Q4-6H PRN metoclopramide HCl [Reglan] 10 mg tablet 10 mg PO Q6H PRN (Reason: nausea and vomiting) Qty: 30 0RF pantoprazole [Protonix] 40 mg tablet,delayed release (DR/EC) 40 mg PO DAILY Qty: 30 0RF Referrals: Felisha Hanna DO [Primary Care Provider, Internal Medicine] Stand Alone Forms: Patient Portal/API
[2025-03-21 07:54] LABS: Add Manual Diff / Slide Review NO; Hematocrit 42.5 % (36-46); Hemoglobin 14.8 g/dL (12.0-16.0); Lymphocytes Absolute Auto 900 /uL (1100-4500); Mean Corpuscular HGB Conc 34.7 % (30-36); Mean Corpuscular Hemoglobin 30.9 PG (26-34); Mean Corpuscular Volume 89.1 fL (80-100); Platelet Count 239 X10^3/uL (150-400)
[2025-03-21] MEDS: ONDANSETRON 4 MG/2 ML INJ IV (07:59)
[2025-03-21 08:00] LABS: Alanine Aminotransferase 16 IU/L (<35); Albumin 4.6 g/dL (3.5-5.0); Albumin Globulin Ratio 1.4 (1.0-2.8); Alkaline Phosphatase 67 U/L (38-126); Blood Urea Nitrogen 16 mg/dL (7-17); Calcium 9.1 mg/dL (8.4-10.2); Carbon Dioxide 23 mmol/L (22-32); Chloride 106 mmol/L (98-107); Estimated Glomerular Filt Rate > 60 mL/min (>60); Ethanol (ETOH) < 10 mg/dL (<10); Globulin 3.4 g/dL (1.7-4.1); Glucose 110 mg/dL (70-99); HEMOLYSIS < 15 (0-50); Potassium 4.1 mmol/L (3.4-5.1); Sodium 138 mmol/L (137-145); Total Protein 8.0 g/dL (6.3-8.2)
[2025-03-21 08:01] VITALS: O2SAT 99
[2025-03-21 08:01] LABS: Lipase 48 U/L (23-300)
[2025-03-21 08:02] VITALS: BP 137/68; O2SAT 99
[2025-03-21 08:39] LABS: TSH w/ Reflex to FT4 1.86 uIU/mL (0.47-4.68)
[2025-03-21] MEDS: SODIUM CHLORIDE 0.9% 1,000 ML 1000 ML IV (08:41)
--- NOTE | 2025-03-21 08:55 | PC.NURSE ---
Pt unsteady with gait on ambulation. States this happens when she has issues with her anxiety. Provider aware
== END 2025-03-21 10:24 | disposition home or self-care (01) ==
PROVIDERS: Emergency Medicine; Emergency Provider Emergency Medicine; Family Provider Internal Medicine; PCP Student in an Organized Health Care Education/Training Program
DX: F41.9 Anxiety disorder, unspecified (principal); R10.13 Epigastric pain; R19.7 Diarrhea, unspecified
CPT/HCPCS: 36415; 80053; 80320; 81003; 83690; 84443; 85025; 96374; 99284; J2405; J7030